=== PATIENT | female | born 1950 | race Caucasian/White ===

== ENCOUNTER 2016-09-05 11:50 | Emergency (ER) | payer MEDICARE, MEDICAID ==
[~2016-09-05] VITALS: Ht 149.9 cm; Wt 98.6 kg
[~2016-09-05 11:50] MED LIST: ACET-1757 PO; AMPI3VIA IV; DIAZ5TAB PO; DULO60CA7 PO; ENOX30SY4 SQ; ESOM40CA PO; FENT-58 TD; FENT1PAT76 TP; FENTANYL PO; GABA300C10 PO; GABA600T2 PO; HYDR-3138 PO; INSU100C5 SQ-INSULIN; LISI-167 PO; METF10002 PO; OXYC-229 PO; OXYC10TA6 PO; OXYC15TA PO; PANT40TA5 PO; SERT100T PO; SERT100T5 PO; SULF1TAB24 PO; TRAZ100T15 PO; TRAZ50TA18 PO; VANC1VIA3 IV
[2016-09-05] MEDS ORDERED: KETOROLAC 30 MG/1 ML ONE (12:59)
[2016-09-05] MEDS ORDERED: DIAZEPAM 5 MG TABLET ONE (12:59)
[2016-09-05] MEDS ORDERED: KETOROLAC 30 MG/1 ML IM ONE (13:00)
[2016-09-05] MEDS ORDERED: DIAZEPAM 5 MG TABLET PO ONE (13:00)
[2016-09-05] MEDS ORDERED: HYDROmorphone 1 MG/ML, 1ML ONE (14:38)
[2016-09-05 14:54] VITALS: BP 123/73
[2016-09-05] MEDS ORDERED: HYDROmorphone 1 MG/ML, 1ML IM ONE (15:00)
== END 2016-09-05 15:12 | disposition home or self-care (01) ==
LOC: ED 15:00
DX: S33.5XXA Sprain of ligaments of lumbar spine, initial encounter (principal); S16.1XXA Strain of muscle, fascia and tendon at neck level, initial encounter; E11.9 Type 2 diabetes mellitus without complications; I10 Essential (primary) hypertension; K21.9 Gastro-esophageal reflux disease without esophagitis; W01.0XXA Fall on same level from slipping, tripping and stumbling without subsequent striking against object, initial encounter; Y93.89 Activity, other specified; Y99.8 Other external cause status; Y92.89 Other specified places as the place of occurrence of the external cause
CPT/HCPCS: 72110; 72125; 96372; 99284; J1170; J1885

== ENCOUNTER 2019-04-06 13:30 | Emergency (ER) | payer MEDICARE, MEDICAID ==
[~2019-04-06] VITALS: Ht 149.9 cm; Wt 68.4 kg
[~2019-04-06 13:30] MED LIST changes: -ACET-1757 PO; +ACET-2065 PO; +CEFD300C37 PO; +DOXY100C15 PO; +FLUT1BLS INH; -GABA600T2 PO; +GABA600T7 PO; +GUAI600T31 PO; -HYDR-3138 PO; +HYDR-3237 PO; +IPRA3AMP30 NPPB; +METF500T PO; +OMEP-110 PO; -OXYC-229 PO; +OXYC-307 PO; +PRED10TA14 PO; +SERT100T32 PO; -SERT100T5 PO; +TIOT18CA INH; +TIZA4CAP PO; +TRAZ-137 PO; -TRAZ100T15 PO; -TRAZ50TA18 PO; +TRAZ50TA66 PO
[2019-04-06 13:35] VITALS: BP 137/67
--- NOTE | 2019-04-06 14:47 | NUR ---
PT GIVEN DC INSTRUCTIONS AND SCRIPT, EDUCATED REGARDING DC RX FOR TESSALON. PT A&O, RESPS EVEN AND UNLABORED, PT AMB TO DC DESK WITH STEADY GAIT ACCOMPANIED BY DAUGHTER. MILAGRON AT DC.
== END 2019-04-06 14:48 | disposition home or self-care (01) ==
LOC: ED 14:20
DX: B34.9 Viral infection, unspecified (principal); I10 Essential (primary) hypertension; E11.9 Type 2 diabetes mellitus without complications; K21.9 Gastro-esophageal reflux disease without esophagitis; M79.7 Fibromyalgia; Z90.710 Acquired absence of both cervix and uterus
CPT/HCPCS: 71046; 99283